=== PATIENT | male | born 1980 | race Caucasian/White ===

== ENCOUNTER 2020-03-16 21:53 | Emergency (ER) | payer OTHER ==
[~2020-03-16] VITALS: Ht 188 cm; Wt 100.0 kg
[2020-03-16 21:54] VITALS: BP 145/91
== END 2020-03-16 22:56 | disposition left against medical advice (07) ==
LOC: ER 21:53
DX: S81.819A Laceration without foreign body, unspecified lower leg, initial encounter (principal); Z53.21 Procedure and treatment not carried out due to patient leaving prior to being seen by health care provider; W26.0XXA Contact with knife, initial encounter; Y93.89 Activity, other specified; Y92.89 Other specified places as the place of occurrence of the external cause; Y99.8 Other external cause status